=== PATIENT | male | born 1970 | race Caucasian/White ===

== ENCOUNTER 2018-08-20 17:14 | Emergency (ER) | payer OTHER ==
[~2018-08-20] VITALS: Ht 172.7 cm; Wt 77.1 kg
[2018-08-20] MEDS ORDERED: OMEPRAZOLE20 MG PO (17:24)
[2018-08-20 17:47] LABS: HEMATOCRIT 40.6 % (42.0-52.0); MCH 31.6 pg (26.0-34.0); MCHC 34.5 g/dL (28.0-37.0); MCV 91.6 fL (80.0-100.0); MPV 9.9 fl. (7.2-11.1); NUCLEATED RBCS 0 /100WBC; PLATELET COUNT* 280 thou/uL (150-400); RBC 4.43 mil/uL (4.50-6.00); WBC 20.5 thou/uL (4.0-11.0)
[2018-08-20 17:59] LABS: POTASSIUM 3.3 mmol/L (3.5-5.1)
[2018-08-20 18:04] LABS: ALBUMIN 3.8 g/dL (3.4-5.0); TOTAL PROTEIN 8.4 g/dL (6.4-8.2)
[2018-08-20 18:28] LABS: ABSOLUTE BASOPHILS 0.2 thou/uL (0.0-0.2); ABSOLUTE LYMPHOCYTES 2.5 thou/uL (0.8-5.3); ABSOLUTE MONOCYTES 2.1 thou/uL (0.0-1.2); ABSOLUTE NEUTROPHILS 15.8 thou/uL (1.6-8.1); ATYPICAL LYMPHS 2 %
[2018-08-20 18:30] LABS: PLATELET ESTIMATE ADEQUATE; ROULEAUX OCCASIONAL
[2018-08-20] MEDS ORDERED: Magic Mouthwash PO (18:45)
[2018-08-20] MEDS ORDERED: AUGMENTIN600 MG/5 M PO (18:45)
[2018-08-20] MEDS ORDERED: HYDROCODONE-ACE15 ML PO (18:45)
[2018-08-20 19:30] VITALS: BP 126/80
== END 2018-08-20 19:30 | disposition home or self-care (01) ==
LOC: M.ERS 17:14
PROVIDERS: Personal Emergency Response Attendant
DX: J03.90 Acute tonsillitis, unspecified (principal)